=== PATIENT | male | born 1980 | race Caucasian/White ===

== ENCOUNTER 2021-06-25 08:41 | Emergency (ER) | payer MEDICAID ==
[~2021-06-25] VITALS: Ht 172.7 cm; Wt 63.0 kg
[2021-06-25 08:44] VITALS: BP 161/130
[2021-06-25] MEDS ORDERED: normal saline 1000ML IV soln IVB ONE (09:50)
[2021-06-25] MEDS ORDERED: LORazepam 2 mg/ml vial IV ONE (09:50)
[2021-06-25] MEDS ORDERED: Potassium Cl inj 20 MEQ, magnesium sulf injection 2 GM, folic acid inj. 1 MG, thiamine ... IV ONE ×6 (09:50)
[2021-06-25] MEDS ORDERED: multivitamins, therapeutics tablet PO ONE (09:50)
[2021-06-25] MEDS ORDERED: multivitamins, therapeutics tablet PO SCH (09:50)
--- NOTE | 2021-06-25 10:04 | NUR ---
IV attempt x1. Pt requesting to leave. Dr. Giron at bedside to explain need for treatment and risks of leaving. Patient agreeable to treatment. RN at bedside. IV attempt failed. Pt is agitated and states he wants a pill, food, and water. Refusing further IV or lab draw attempts. Dr. Giron updated. Pt uncooperative with treatment. AMA paperwork signed.
[2021-06-25] MEDS ORDERED: folic acid 1mg/0.2ml inj IV ONE (10:07)
[2021-06-25] MEDS ORDERED: potassium Cl 20mEq in D5-NS 1,000 ML IV ONE (10:10)
[2021-06-25] MEDS ORDERED: magnesium 2GM in 50ml NS 50 ML IV ONE (10:10)
[2021-06-25] MEDS ORDERED: thiamine 100mg/ml 2ml inj. IV ONE (10:10)
== END 2021-06-25 10:08 | disposition left against medical advice (07) ==
LOC: ER 08:41
DX: F10.139 Alcohol abuse with withdrawal, unspecified (principal); F12.90 Cannabis use, unspecified, uncomplicated; F15.90 Other stimulant use, unspecified, uncomplicated; F11.90 Opioid use, unspecified, uncomplicated; F17.200 Nicotine dependence, unspecified, uncomplicated; Z59.00 Homelessness unspecified; Z87.19 Personal history of other diseases of the digestive system; Z86.19 Personal history of other infectious and parasitic diseases; Z72.89 Other problems related to lifestyle; Z56.0 Unemployment, unspecified; Y90.9 Presence of alcohol in blood, level not specified
CPT/HCPCS: 99283

== ENCOUNTER 2021-07-02 23:41 | Emergency (ER) | payer MEDICAID ==
[~2021-07-02] VITALS: Ht 172.7 cm; Wt 69.8 kg
[2021-07-03 00:53] LABS: CLARITY,URINE CLEAR (Clear); COLOR,URINE YELLOW (Yellow); GLUCOSE, URINE NEGATIVE (Neg); KETONES,URINE NEGATIVE (Neg); LEUKOCYTE ESTERASE ,URINE NEGATIVE (Neg); NITRITES, URINE NEGATIVE (Neg); OCCULT BLOOD,URINE NEGATIVE (Neg); PROTEIN,URINE NEGATIVE (Neg); UROBILINOGEN,URINE 0.2 E.U/dL (0.2-1.0)
[2021-07-03 00:55] LABS: UA COLLECTION TYPE CLN CATCH MIDSTREAM
[2021-07-03 00:57] LABS: URINE AMPHETAMINE SCREEN POSITIVE (Neg); URINE BARBITUATE SCREEN NEGATIVE (Neg); URINE BENZODIAZEPINES SCREEN NEGATIVE (Neg); URINE CANNABINOID SCREEN NEGATIVE (Neg); URINE COCAINE SCREEN NEGATIVE (Neg); URINE METHADONE SCREEN NEGATIVE (Neg); URINE OPIATE SCREEN NEGATIVE (Neg); URINE PHENCYCLIDINE SCREEN NEGATIVE (Neg)
[2021-07-03] MEDS ORDERED: ondansetron/PF 4mg/2ml inj IV ONE (01:50)
[2021-07-03] MEDS ORDERED: normal saline 1000ml 1,000 ML IV ONE (01:50)
[2021-07-03] MEDS ORDERED: normal saline 1000ML IV soln IVB ONE (01:50)
[2021-07-03] MEDS ORDERED: chlordiazePOXIDE 25mg capsule PO ONE (01:50)
[2021-07-03 01:57] LABS: ALANINE AMINOTRANSFERASE 154 U/L (12-78); ALBUMIN 3.6 G/DL (3.4-5.0); ALBUMIN/GLOBULIN RATIO 0.8 (1.1-1.5); ALKALINE PHOSPHATASE 86 IU/L (46-116); ANION GAP 16 (8-16); ASPARTATE AMINO TRANSFERASE 132 U/L (10-37); BILIRUBIN,TOTAL 0.7 MG/DL (0.1-1.0); BLOOD UREA NITROGEN 6 MG/DL (7-18); BUN/CREATININE RATIO 7.6 (5.4-32.0); CALCIUM 8.4 MG/DL (8.5-10.1); CHLORIDE 105 MMOL/L (99-107); CREATININE 0.79 MG/DL (0.60-1.10); ETHANOL 0.227 GM/DL (0.0-0.010); GLUCOSE 111 MG/DL (70-104); MAGNESIUM 1.9 MG/DL (1.5-2.4); POTASSIUM 3.5 MMOL/L (3.5-5.1); SODIUM 144 MMOL/L (135-145); TOTAL CARBON DIOXIDE 22.9 MMOL/L (24-32); TOTAL PROTEIN 7.9 G/DL (6.4-8.2); eGFR > 90 ML/MIN
[2021-07-03 02:15] LABS: BASOPHILS # (AUTO) 0.1 X10'3 (0-0.2); BASOPHILS % (AUTO) 0.7 % (0-1); EOSINOPHILS # (AUTO) 0.2 X10'3 (0-0.9); EOSINOPHILS % (AUTO) 2.9 % (0-6); HEMATOCRIT 44.2 % (42.0-52.0); LYMPHOCYTES # (AUTO) 2.4 X10'3 (1.1-4.8); LYMPHOCYTES % (AUTO) 31.3 % (21-51); MEAN CORPUSCULAR HGB CONC 33.9 g/dL (33.0-36.5); MEAN CORPUSCULAR VOLUME 91.3 FL (78-98); MEAN PLATELET VOLUME 7.9 FL (7.4-10.4); MONOCYTES # (AUTO) 0.8 X10'3 (0-0.9); MONOCYTES % (AUTO) 10.1 % (2-12); NEUTROPHILS # (AUTO) 4.3 X10'3 (1.8-7.7); PLATELET COUNT 202 X10'3 (140-440); RED BLOOD COUNT 4.84 X10'6 (4.70-6.10); RED CELL DISTRIBUTION WIDTH 16.2 % (11.5-14.5); WHITE BLOOD COUNT 7.8 X10'3 (4.5-11.0)
[2021-07-03 03:30] VITALS: BP 141/89
== END 2021-07-03 03:32 | disposition home or self-care (01) ==
LOC: ER 23:42
DX: F10.129 Alcohol abuse with intoxication, unspecified (principal); F15.10 Other stimulant abuse, uncomplicated; Y90.9 Presence of alcohol in blood, level not specified; Z86.19 Personal history of other infectious and parasitic diseases; Z87.19 Personal history of other diseases of the digestive system; Z72.89 Other problems related to lifestyle; Z56.0 Unemployment, unspecified; Z59.00 Homelessness unspecified
CPT/HCPCS: 36415; 80053; 80305; 80320; 81003; 83735; 85025; 93005; 96361; 96374; 99284; J2405; J7030

== ENCOUNTER 2021-07-05 16:47 | Inpatient (IN) | payer MEDICAID ==
[~2021-07-05] VITALS: Ht 172.7 cm; Wt 63.6 kg
[2021-07-05 17:47] LABS: BASOPHILS # (AUTO) 0.1 X10'3 (0-0.2); EOSINOPHILS # (AUTO) 0.3 X10'3 (0-0.9); EOSINOPHILS % (AUTO) 4.3 % (0-6); HEMATOCRIT 45.3 % (42.0-52.0); HEMOGLOBIN 14.9 g/dl (14.0-17.9); LYMPHOCYTES # (AUTO) 2.6 X10'3 (1.1-4.8); LYMPHOCYTES % (AUTO) 43.6 % (21-51); MEAN CORPUSCULAR HEMOGLOBIN 30.6 PG (27.0-31.0); MEAN CORPUSCULAR VOLUME 92.9 FL (78-98); MEAN PLATELET VOLUME 7.2 FL (7.4-10.4); MONOCYTES # (AUTO) 0.5 X10'3 (0-0.9); MONOCYTES % (AUTO) 7.8 % (2-12); NEUTROPHILS # (AUTO) 2.6 X10'3 (1.8-7.7); NEUTROPHILS % (AUTO) 43.3 % (42-75); PLATELET COUNT 210 X10'3 (140-440); RED BLOOD COUNT 4.88 X10'6 (4.70-6.10); RED CELL DISTRIBUTION WIDTH 16.9 % (11.5-14.5)
[2021-07-05] MEDS ORDERED: cefTRIAXone 1g/NS 100ml IVPB 100 ML IV ONE (17:50)
[2021-07-05] MEDS ORDERED: normal saline 1000ML IV soln IVB ONE (17:50)
[2021-07-05] MEDS ORDERED: thiamine 100mg/ml 2ml inj. IV ONE (17:50)
[2021-07-05] MEDS ORDERED: LORazepam 2 mg/ml vial IV ONE (17:50)
[2021-07-05] MEDS ORDERED: folic acid 1mg tablet PO ONE (17:50)
[2021-07-05 18:00] LABS: ALANINE AMINOTRANSFERASE 144 U/L (12-78); ALBUMIN 3.3 G/DL (3.4-5.0); ALBUMIN/GLOBULIN RATIO 0.8 (1.1-1.5); ALKALINE PHOSPHATASE 90 IU/L (46-116); ANION GAP 12 (8-16); ASPARTATE AMINO TRANSFERASE 126 U/L (10-37); BILIRUBIN,TOTAL 0.4 MG/DL (0.1-1.0); BLOOD UREA NITROGEN 3 MG/DL (7-18); BUN/CREATININE RATIO 4.1 (5.4-32.0); CALCIUM 8.2 MG/DL (8.5-10.1); CHLORIDE 109 MMOL/L (99-107); CREATININE 0.74 MG/DL (0.60-1.10); GLUCOSE 94 MG/DL (70-104); POTASSIUM 3.7 MMOL/L (3.5-5.1); SODIUM 146 MMOL/L (135-145); TOTAL CARBON DIOXIDE 24.6 MMOL/L (24-32); TOTAL PROTEIN 7.5 G/DL (6.4-8.2); eGFR > 90 ML/MIN
[2021-07-05 18:05] LABS: MAGNESIUM 1.7 MG/DL (1.5-2.4)
[2021-07-05 18:07] LABS: ETHANOL 0.331 GM/DL (0.0-0.010)
--- NOTE | 2021-07-05 18:55 | NUR ---
Pt c/o right arm pain, swelling and stiffness for the past several days; see triage note.
[2021-07-05] MEDS ORDERED: ketorolac tromethamine 15mg/ml inj. IV ONE (19:30)
[2021-07-05] MEDS ORDERED: magnesium Cl slow-release 64mg tablet PO PRN (23:05)
[2021-07-05] MEDS ORDERED: magnesium 2GM in 50ml NS 50 ML IV PRN (23:05)
[2021-07-05] MEDS ORDERED: potassium CL 10mEq/100ml bag 100 ML IV PRN (23:05)
[2021-07-05] MEDS ORDERED: acetaminophen 325mg tablet PO PRN (23:05)
[2021-07-05] MEDS ORDERED: magnesium 4gm in 100ml NS 100 ML IV PRN (23:05)
[2021-07-05] MEDS ORDERED: mag hydrox/Alum hydrox/simeth 30ml oral suspension PO PRN (23:05)
[2021-07-05] MEDS ORDERED: LORazepam 2 mg/ml vial IV PRN (23:05)
[2021-07-05] MEDS ORDERED: ondansetron/PF 4mg/2ml inj IV PRN (23:05)
[2021-07-05] MEDS ORDERED: potassium Cl 20 mEq SR tablet PO PRN ×2 (23:05)
[2021-07-05] MEDS ORDERED: magnesium hydroxide 30ml (MOM) UD suspension PO PRN (23:05)
[2021-07-05] MEDS: normal saline 1000ml 1,000 ML IV SCH (23:23)
[2021-07-05 23:43] LABS: MAGNESIUM 1.6 MG/DL (1.5-2.4); POTASSIUM 3.4 MMOL/L (3.5-5.1)
[2021-07-05] MEDS: LORazepam 2 mg/ml vial IV PRN (23:51)
[2021-07-06 01:18] LABS: BASOPHILS # (AUTO) 0.1 X10'3 (0-0.2); EOSINOPHILS # (AUTO) 0.3 X10'3 (0-0.9); EOSINOPHILS % (AUTO) 4.6 % (0-6); HEMATOCRIT 38.8 % (42.0-52.0); LYMPHOCYTES # (AUTO) 2.1 X10'3 (1.1-4.8); LYMPHOCYTES % (AUTO) 34.7 % (21-51); MEAN CORPUSCULAR HEMOGLOBIN 31.2 PG (27.0-31.0); MEAN CORPUSCULAR HGB CONC 33.6 g/dL (33.0-36.5); MEAN CORPUSCULAR VOLUME 92.9 FL (78-98); MEAN PLATELET VOLUME 7.1 FL (7.4-10.4); MONOCYTES # (AUTO) 0.5 X10'3 (0-0.9); MONOCYTES % (AUTO) 8.3 % (2-12); NEUTROPHILS # (AUTO) 3.1 X10'3 (1.8-7.7); NEUTROPHILS % (AUTO) 51.4 % (42-75); PLATELET COUNT 172 X10'3 (140-440); RED BLOOD COUNT 4.17 X10'6 (4.70-6.10); RED CELL DISTRIBUTION WIDTH 16.6 % (11.5-14.5); WHITE BLOOD COUNT 6.1 X10'3 (4.5-11.0)
--- NOTE | 2021-07-06 01:27 | NUR ---
Attempted to provide report to RN, who states she'll return call "in a miniute."
[2021-07-06 01:32] LABS: ALANINE AMINOTRANSFERASE 116 U/L (12-78); ALBUMIN 2.6 G/DL (3.4-5.0); ALBUMIN/GLOBULIN RATIO 0.7 (1.1-1.5); ALKALINE PHOSPHATASE 78 IU/L (46-116); ANION GAP 9 (8-16); ASPARTATE AMINO TRANSFERASE 123 U/L (10-37); BILIRUBIN,TOTAL 0.3 MG/DL (0.1-1.0); BLOOD UREA NITROGEN 3 MG/DL (7-18); BUN/CREATININE RATIO 4.3 (5.4-32.0); CALCIUM 7.8 MG/DL (8.5-10.1); CHLORIDE 108 MMOL/L (99-107); GLUCOSE 96 MG/DL (70-104); MAGNESIUM 1.6 MG/DL (1.5-2.4); POTASSIUM 3.6 MMOL/L (3.5-5.1); SODIUM 144 MMOL/L (135-145); TOTAL CARBON DIOXIDE 26.6 MMOL/L (24-32); TOTAL PROTEIN 6.1 G/DL (6.4-8.2); eGFR > 90 ML/MIN
--- NOTE | 2021-07-06 01:58 | NUR ---
Report called to MATILDA Ding for pt going to [facility]
[2021-07-06 02:42] VITALS: BP 130/70
[2021-07-06] MEDS: HYDROcodone/acetaminophen 5mg/325mg tablet PO PRN ×5 (02:59→21:39)
[2021-07-06] MEDS: LORazepam 2 mg/ml vial IV PRN ×7 (02:59→22:40)
[2021-07-06] MEDS: CLINDAMYCIN 300mg/NS 50ml IVPB 50 ML IV SCH ×3 (03:08→13:19)
[2021-07-06 07:00] VITALS: BP 132/76
--- NOTE | 2021-07-06 07:03 | NUR ---
Patient in room [facility]. I have received report from Gissel GREY and had the opportunity to ask questions and assume patient care.
--- NOTE | 2021-07-06 07:23 | NUR ---
PAGER ID: [phone] MESSAGE: [phone] BLOCK, M: PATIENT PASSED AT [id number]. NOC HOSPITALIST ASKED THAT I NOTIFY YOU. THANKS! ELLE [phone]
[2021-07-06] MEDS: heparin, porcine 5000 units/ml vial SQ SCH ×2 (07:24→21:38)
[2021-07-06] MEDS: docusate sod 100mg capsule PO SCH ×2 (07:28→21:37)
[2021-07-06] MEDS: K and/or MAG REPLACEMENT MC SCH ×2 (08:00→20:00)
[2021-07-06] MEDS ORDERED: NO HOME MEDS (09:49)
[2021-07-06] MEDS: normal saline 1000ml 1,000 ML IV SCH ×2 (10:06→19:47)
[2021-07-06 10:20] LABS: CLARITY,URINE CLEAR (Clear); GLUCOSE, URINE NEGATIVE (Neg); KETONES,URINE NEGATIVE (Neg); LEUKOCYTE ESTERASE ,URINE NEGATIVE (Neg); NITRITES, URINE NEGATIVE (Neg); OCCULT BLOOD,URINE NEGATIVE (Neg); PH,URINE 7.5 (4.8-8.0); PROTEIN,URINE NEGATIVE (Neg); UROBILINOGEN,URINE 0.2 E.U/dL (0.2-1.0)
[2021-07-06 10:21] LABS: URINE AMPHETAMINE SCREEN NEGATIVE (Neg); URINE BARBITUATE SCREEN NEGATIVE (Neg); URINE BENZODIAZEPINES SCREEN POSITIVE (Neg); URINE CANNABINOID SCREEN NEGATIVE (Neg); URINE COCAINE SCREEN NEGATIVE (Neg); URINE METHADONE SCREEN NEGATIVE (Neg); URINE OPIATE SCREEN POSITIVE (Neg); URINE PHENCYCLIDINE SCREEN NEGATIVE (Neg)
[2021-07-06 10:23] LABS: COLOR,URINE STRAW (Yellow); UA COLLECTION TYPE CLN CATCH MIDSTREAM
[2021-07-06 11:00] VITALS: BP 151/91
--- NOTE | 2021-07-06 11:45 | NUR ---
Met with patient in regards to alcohol use and to see if patient is interested in treatment options. Patient would like to go to an inpatient rehab. I gave patient [facility] number to start process. I also talked to patient about medication to help with alcohol cravings. I gave patient my card to call me if he has any questions.
--- NOTE | 2021-07-06 18:13 | NUR ---
Problems reprioritized. Patient report given, questions answered & plan of care reviewed with MATILDA Spencer.
[2021-07-06 20:00] VITALS: BP 140/79
[2021-07-06] MEDS ORDERED: clindamycin 300mg/D5W 50mL 50 ML IV ONE (21:18)
[2021-07-07] VITALS: BP 165/113
[2021-07-07] MEDS: LORazepam 2 mg/ml vial IV PRN ×7 (00:55→20:16)
[2021-07-07 00:57] VITALS: BP 170/110
--- NOTE | 2021-07-07 01:22 | NUR ---
DR WILCOX NOTIFIED OF BP 170/110 P 88 . NO ADDITIONAL ORDERS DR WILCOX STATED TO CONTINUE ATIVAN NEEDED
[2021-07-07 03:36] VITALS: BP 139/85
[2021-07-07] MEDS: HYDROcodone/acetaminophen 5mg/325mg tablet PO PRN (03:42)
[2021-07-07] MEDS: clindamycin 300mg/D5W 50mL 50 ML IV SCH ×4 (03:44→20:10)
[2021-07-07] MEDS: normal saline 1000ml 1,000 ML IV SCH ×2 (06:01→16:21)
--- NOTE | 2021-07-07 06:26 | NUR ---
Patient in room [facility]. I have received report from HUGO GREY and had the opportunity to ask questions and assume patient care.
[2021-07-07 06:41] LABS: BASOPHILS # (AUTO) 0.1 X10'3 (0-0.2); BASOPHILS % (AUTO) 1.2 % (0-1); EOSINOPHILS # (AUTO) 0.3 X10'3 (0-0.9); EOSINOPHILS % (AUTO) 5.9 % (0-6); HEMATOCRIT 41.7 % (42.0-52.0); LYMPHOCYTES # (AUTO) 1.2 X10'3 (1.1-4.8); LYMPHOCYTES % (AUTO) 25.3 % (21-51); MEAN CORPUSCULAR HGB CONC 33.7 g/dL (33.0-36.5); MEAN CORPUSCULAR VOLUME 92.1 FL (78-98); MEAN PLATELET VOLUME 8.3 FL (7.4-10.4); MONOCYTES # (AUTO) 0.5 X10'3 (0-0.9); MONOCYTES % (AUTO) 11.9 % (2-12); NEUTROPHILS # (AUTO) 2.5 X10'3 (1.8-7.7); NEUTROPHILS % (AUTO) 55.7 % (42-75); PLATELET COUNT 160 X10'3 (140-440); RED BLOOD COUNT 4.52 X10'6 (4.70-6.10); RED CELL DISTRIBUTION WIDTH 16.3 % (11.5-14.5); WHITE BLOOD COUNT 4.5 X10'3 (4.5-11.0)
[2021-07-07 07:01] LABS: ALANINE AMINOTRANSFERASE 115 U/L (12-78); ALBUMIN 2.9 G/DL (3.4-5.0); ALBUMIN/GLOBULIN RATIO 0.8 (1.1-1.5); ALKALINE PHOSPHATASE 88 IU/L (46-116); ANION GAP 11 (8-16); ASPARTATE AMINO TRANSFERASE 95 U/L (10-37); BILIRUBIN,TOTAL 0.8 MG/DL (0.1-1.0); BLOOD UREA NITROGEN 3 MG/DL (7-18); BUN/CREATININE RATIO 4.5 (5.4-32.0); CALCIUM 8.3 MG/DL (8.5-10.1); CHLORIDE 104 MMOL/L (99-107); CREATININE 0.66 MG/DL (0.60-1.10); GLUCOSE 92 MG/DL (70-104); MAGNESIUM 1.5 MG/DL (1.5-2.4); POTASSIUM 3.7 MMOL/L (3.5-5.1); SODIUM 139 MMOL/L (135-145); TOTAL CARBON DIOXIDE 24.4 MMOL/L (24-32); TOTAL PROTEIN 6.7 G/DL (6.4-8.2); eGFR > 90 ML/MIN
--- NOTE | 2021-07-07 07:06 | NUR ---
NO SEIZURE ACTIVITY NOTED OVERNIGHT
[2021-07-07] MEDS: K and/or MAG REPLACEMENT MC SCH ×2 (08:00→20:00)
[2021-07-07 08:15] VITALS: BP 148/83
[2021-07-07] MEDS ORDERED: haloperidol 5mg tablet PO PRN (08:30)
[2021-07-07] MEDS ORDERED: haloperidol lactate 5mg/ml inj IM PRN (08:30)
[2021-07-07] MEDS: heparin, porcine 5000 units/ml vial SQ SCH ×2 (08:52→20:11)
[2021-07-07] MEDS: docusate sod 100mg capsule PO SCH ×2 (08:53→20:10)
[2021-07-07] MEDS: thiamine 100mg tablet PO SCH (09:03)
[2021-07-07] MEDS: folic acid 1mg tablet PO SCH (09:03)
[2021-07-07 09:58] LABS: PHOSPHORUS 3.4 MG/DL (2.3-4.5)
[2021-07-07 13:16] VITALS: BP 136/83
[2021-07-07 18:00] VITALS: BP 138/91
--- NOTE | 2021-07-07 18:44 | NUR ---
Noticed patient was not on ETOH protocol as patient drinks a litre of vodka daily,DR Sandoval contacted and order given.patient shaking and anxious. Asking for ativan. Administered x4 with good effect. psychiatric social worker alerted with regards options for patient. C/O itchy arms from eczema. DR Sandoval paged with regards cream for arms, awaiting call back. patient sleeping alot of day. Report given to Lesa GREY
--- NOTE | 2021-07-07 18:50 | NUR ---
Patient in room [facility]. I have received report from AKVON GREY and had the opportunity to ask questions and assume patient care.
[2021-07-08] VITALS: BP 133/90
[2021-07-08] MEDS: normal saline 1000ml 1,000 ML IV SCH ×3 (02:30→19:51)
[2021-07-08] MEDS: clindamycin 300mg/D5W 50mL 50 ML IV SCH ×4 (02:30→19:49)
--- NOTE | 2021-07-08 06:24 | NUR ---
Problems reprioritized. Patient report given, questions answered & plan of care reviewed with MERA GREY.
[2021-07-08 06:35] LABS: BASOPHILS % (AUTO) 0.8 % (0-1); EOSINOPHILS # (AUTO) 0.4 X10'3 (0-0.9); EOSINOPHILS % (AUTO) 6.2 % (0-6); HEMATOCRIT 46.6 % (42.0-52.0); HEMOGLOBIN 15.5 g/dl (14.0-17.9); LYMPHOCYTES # (AUTO) 2.2 X10'3 (1.1-4.8); LYMPHOCYTES % (AUTO) 36.6 % (21-51); MEAN CORPUSCULAR HEMOGLOBIN 30.8 PG (27.0-31.0); MEAN CORPUSCULAR HGB CONC 33.2 g/dL (33.0-36.5); MEAN CORPUSCULAR VOLUME 92.7 FL (78-98); MEAN PLATELET VOLUME 8.6 FL (7.4-10.4); MONOCYTES # (AUTO) 0.7 X10'3 (0-0.9); MONOCYTES % (AUTO) 12.1 % (2-12); NEUTROPHILS # (AUTO) 2.7 X10'3 (1.8-7.7); NEUTROPHILS % (AUTO) 44.3 % (42-75); PLATELET COUNT 180 X10'3 (140-440); RED BLOOD COUNT 5.02 X10'6 (4.70-6.10); RED CELL DISTRIBUTION WIDTH 16.8 % (11.5-14.5)
[2021-07-08 06:47] LABS: ALANINE AMINOTRANSFERASE 125 U/L (12-78); ALBUMIN 2.9 G/DL (3.4-5.0); ALBUMIN/GLOBULIN RATIO 0.7 (1.1-1.5); ALKALINE PHOSPHATASE 89 IU/L (46-116); ANION GAP 6 (8-16); ASPARTATE AMINO TRANSFERASE 113 U/L (10-37); BILIRUBIN,TOTAL 0.7 MG/DL (0.1-1.0); BLOOD UREA NITROGEN 6 MG/DL (7-18); BUN/CREATININE RATIO 10.2 (5.4-32.0); CALCIUM 8.8 MG/DL (8.5-10.1); CHLORIDE 107 MMOL/L (99-107); CREATININE 0.59 MG/DL (0.60-1.10); GLUCOSE 100 MG/DL (70-104); PHOSPHORUS 3.6 MG/DL (2.3-4.5); POTASSIUM 4.3 MMOL/L (3.5-5.1); SODIUM 137 MMOL/L (135-145); TOTAL CARBON DIOXIDE 24.1 MMOL/L (24-32); TOTAL PROTEIN 7.1 G/DL (6.4-8.2); eGFR > 90 ML/MIN
[2021-07-08] MEDS: thiamine 100mg tablet PO SCH (07:11)
[2021-07-08] MEDS: folic acid 1mg tablet PO SCH (07:12)
[2021-07-08] MEDS: docusate sod 100mg capsule PO SCH ×2 (07:12→19:49)
[2021-07-08] MEDS: heparin, porcine 5000 units/ml vial SQ SCH ×2 (07:12→19:50)
[2021-07-08] MEDS: multivitamins, therapeutics tablet PO SCH (07:12)
[2021-07-08] MEDS: LORazepam 2 mg/ml vial IV PRN ×3 (07:12→18:50)
[2021-07-08] MEDS: HYDROcodone/acetaminophen 5mg/325mg tablet PO PRN ×2 (07:26→19:52)
[2021-07-08 08:00] VITALS: BP 136/102
[2021-07-08] MEDS: K and/or MAG REPLACEMENT MC SCH ×2 (08:00→19:50)
[2021-07-08 12:00] VITALS: BP 138/95
--- NOTE | 2021-07-08 18:22 | NUR ---
Patient in room [facility]. I have received report from MERA GREY and had the opportunity to ask questions and assume patient care.
[2021-07-08 20:00] VITALS: BP 130/101
[2021-07-09] VITALS: BP 146/96
[2021-07-09] MEDS: HYDROcodone/acetaminophen 5mg/325mg tablet PO PRN ×4 (00:09→19:29)
[2021-07-09] MEDS: LORazepam 2 mg/ml vial IV PRN (01:13)
[2021-07-09] MEDS: clindamycin 300mg/D5W 50mL 50 ML IV SCH ×3 (01:16→14:08)
[2021-07-09 06:06] LABS: BASOPHILS % (AUTO) 0.7 % (0-1); EOSINOPHILS # (AUTO) 0.2 X10'3 (0-0.9); EOSINOPHILS % (AUTO) 4.1 % (0-6); HEMATOCRIT 45.5 % (42.0-52.0); HEMOGLOBIN 15.3 g/dl (14.0-17.9); LYMPHOCYTES % (AUTO) 33.7 % (21-51); MEAN CORPUSCULAR HEMOGLOBIN 31.3 PG (27.0-31.0); MEAN CORPUSCULAR HGB CONC 33.7 g/dL (33.0-36.5); MEAN CORPUSCULAR VOLUME 92.7 FL (78-98); MEAN PLATELET VOLUME 8.7 FL (7.4-10.4); MONOCYTES # (AUTO) 0.7 X10'3 (0-0.9); MONOCYTES % (AUTO) 12.1 % (2-12); NEUTROPHILS % (AUTO) 49.4 % (42-75); PLATELET COUNT 174 X10'3 (140-440); RED BLOOD COUNT 4.91 X10'6 (4.70-6.10); RED CELL DISTRIBUTION WIDTH 16.3 % (11.5-14.5)
[2021-07-09 06:20] LABS: ALANINE AMINOTRANSFERASE 129 U/L (12-78); ALBUMIN/GLOBULIN RATIO 0.8 (1.1-1.5); ALKALINE PHOSPHATASE 82 IU/L (46-116); ANION GAP 7 (8-16); ASPARTATE AMINO TRANSFERASE 104 U/L (10-37); BILIRUBIN,TOTAL 0.6 MG/DL (0.1-1.0); BLOOD UREA NITROGEN 6 MG/DL (7-18); BUN/CREATININE RATIO 10.3 (5.4-32.0); CALCIUM 8.4 MG/DL (8.5-10.1); CHLORIDE 106 MMOL/L (99-107); CREATININE 0.58 MG/DL (0.60-1.10); GLUCOSE 99 MG/DL (70-104); PHOSPHORUS 3.5 MG/DL (2.3-4.5); POTASSIUM 3.8 MMOL/L (3.5-5.1); SODIUM 137 MMOL/L (135-145); TOTAL CARBON DIOXIDE 23.9 MMOL/L (24-32); eGFR > 90 ML/MIN
--- NOTE | 2021-07-09 06:36 | NUR ---
Problems reprioritized. Patient report given, questions answered & plan of care reviewed with MERA GREY.
[2021-07-09 07:00] VITALS: BP 138/94
[2021-07-09] MEDS: normal saline 1000ml 1,000 ML IV SCH ×2 (07:05→16:47)
[2021-07-09] MEDS: thiamine 100mg tablet PO SCH (07:54)
[2021-07-09] MEDS: LORazepam 1 MG tablet PO PRN ×5 (07:54→22:45)
[2021-07-09] MEDS: multivitamins, therapeutics tablet PO SCH (07:54)
[2021-07-09] MEDS: docusate sod 100mg capsule PO SCH ×2 (07:54→19:29)
[2021-07-09] MEDS: heparin, porcine 5000 units/ml vial SQ SCH ×2 (07:55→19:30)
[2021-07-09] MEDS: K and/or MAG REPLACEMENT MC SCH ×2 (08:00→20:00)
[2021-07-09] MEDS: folic acid 1mg tablet PO SCH (08:02)
[2021-07-09] MEDS ORDERED: LORazepam 2 mg/ml vial IV PRN (08:30)
[2021-07-09 11:00] VITALS: BP 137/100
--- NOTE | 2021-07-09 18:44 | NUR ---
Patient in room [facility]. I have received report from MATILDA TESFAYE and had the opportunity to ask questions and assume patient care. Addendum: 07/09/21 at 1844 by Nanda Carbajal RN Amended: Links added.
[2021-07-09] MEDS: clindamycin 150mg capsule PO SCH (19:29)
[2021-07-09 20:00] VITALS: BP 150/105
[2021-07-10] MEDS: normal saline 1000ml 1,000 ML IV SCH (01:36)
[2021-07-10] MEDS: LORazepam 1 MG tablet PO PRN ×3 (01:44→11:13)
[2021-07-10] MEDS: clindamycin 150mg capsule PO SCH ×2 (01:44→08:05)
[2021-07-10] MEDS: HYDROcodone/acetaminophen 5mg/325mg tablet PO PRN ×3 (01:45→12:14)
[2021-07-10 05:24] LABS: BASOPHILS % (AUTO) 0.7 % (0-1); EOSINOPHILS # (AUTO) 0.1 X10'3 (0-0.9); EOSINOPHILS % (AUTO) 2.7 % (0-6); HEMATOCRIT 43.9 % (42.0-52.0); HEMOGLOBIN 14.7 g/dl (14.0-17.9); LYMPHOCYTES # (AUTO) 1.8 X10'3 (1.1-4.8); LYMPHOCYTES % (AUTO) 34.6 % (21-51); MEAN CORPUSCULAR HGB CONC 33.4 g/dL (33.0-36.5); MEAN CORPUSCULAR VOLUME 92.7 FL (78-98); MEAN PLATELET VOLUME 8.1 FL (7.4-10.4); MONOCYTES # (AUTO) 0.7 X10'3 (0-0.9); MONOCYTES % (AUTO) 13.3 % (2-12); NEUTROPHILS # (AUTO) 2.6 X10'3 (1.8-7.7); NEUTROPHILS % (AUTO) 48.7 % (42-75); PLATELET COUNT 164 X10'3 (140-440); RED BLOOD COUNT 4.73 X10'6 (4.70-6.10); RED CELL DISTRIBUTION WIDTH 16.6 % (11.5-14.5); WHITE BLOOD COUNT 5.3 X10'3 (4.5-11.0)
[2021-07-10 05:46] LABS: ALANINE AMINOTRANSFERASE 124 U/L (12-78); ALBUMIN/GLOBULIN RATIO 0.8 (1.1-1.5); ALKALINE PHOSPHATASE 72 IU/L (46-116); ANION GAP 11 (8-16); ASPARTATE AMINO TRANSFERASE 85 U/L (10-37); BILIRUBIN,TOTAL 0.5 MG/DL (0.1-1.0); BLOOD UREA NITROGEN 5 MG/DL (7-18); BUN/CREATININE RATIO 7.9 (5.4-32.0); CALCIUM 8.6 MG/DL (8.5-10.1); CHLORIDE 105 MMOL/L (99-107); CREATININE 0.63 MG/DL (0.60-1.10); GLUCOSE 104 MG/DL (70-104); PHOSPHORUS 3.4 MG/DL (2.3-4.5); SODIUM 139 MMOL/L (135-145); TOTAL CARBON DIOXIDE 23.3 MMOL/L (24-32); TOTAL PROTEIN 6.9 G/DL (6.4-8.2); eGFR > 90 ML/MIN
[2021-07-10 07:00] VITALS: BP 117/74
--- NOTE | 2021-07-10 07:04 | NUR ---
Problems reprioritized. Patient report given, questions answered & plan of care reviewed with MATILDA JACOBSON. Addendum: 07/10/21 at 0704 by Nanda Carbajal RN Amended: Links added.
--- NOTE | 2021-07-10 07:11 | NUR ---
Patient in room [facility]. I have received report from GILLIAN GREY and had the opportunity to ask questions and assume patient care.
[2021-07-10] MEDS: thiamine 100mg tablet PO SCH (08:00)
[2021-07-10] MEDS ORDERED: thiamine 100mg tablet PO SCH (08:00)
[2021-07-10] MEDS ORDERED: folic acid 1mg tablet PO SCH (08:00)
[2021-07-10] MEDS: folic acid 1mg tablet PO SCH (08:00)
[2021-07-10] MEDS: multivitamins, therapeutics tablet PO SCH (08:06)
[2021-07-10] MEDS: docusate sod 100mg capsule PO SCH (08:06)
[2021-07-10] MEDS: heparin, porcine 5000 units/ml vial SQ SCH (08:07)
--- NOTE | 2021-07-10 10:15 | NUR ---
Initial: Pt admitted w/ alcohol intoxication and cellulitis to [facility] per EMR, pt reportedly drinks 1 liter of vodka daily. Currently on Regular diet w/ mostly 100% intake of meals meeting needs at this time. [facility] 07/08 receiving routine colace. No nutrition intervention implemented at this time, will continue to monitor. Recs: 1. Continue Regular diet as tolerated 2. Bowel care per rx 3. Routine Thiamine, Folate, MVI for EtOH 4. Scaled wts Addendum: 07/10/21 at [address] Amended: Links added.
[2021-07-10] MEDS ORDERED: CEPH-585 PO (11:03)
--- NOTE | 2021-07-10 16:08 | NUR ---
patient medicated for pain and anxiety x2 with effect. seen by Dr Barakat is for DC to rehab facility in [place]. All DC instructions given to patient. Patient DC to [place] with [facility] personals in stable condition. prescription given to patient to hand into [facility] pharmacy in [place].
[2021-07-11] MEDS ORDERED: LORazepam 2 mg/ml vial IV PRN (08:30)
[2021-07-11] MEDS ORDERED: LORazepam 1 MG tablet PO PRN (08:30)
== END 2021-07-10 13:56 | disposition home or self-care (01) | DRG 383 ==
LOC: ER 16:48 → ED HOLD 23:05 → UNDOADMIN 23:05 → EDBEDREQ 23:32 → ED HOLD 07-06 02:07 → SUR 3N 07-06 02:07
PROVIDERS: ADMIT Internal Medicine; ATTEND Family Medicine
DX: L03.113 Cellulitis of right upper limb (principal); F10.231 Alcohol dependence with withdrawal delirium; R56.9 Unspecified convulsions; B19.20 Unspecified viral hepatitis C without hepatic coma; F10.229 Alcohol dependence with intoxication, unspecified; R21 Rash and other nonspecific skin eruption; F12.90 Cannabis use, unspecified, uncomplicated; Z56.0 Unemployment, unspecified; Z59.00 Homelessness unspecified
CPT/HCPCS: 36415; 80053; 80305; 80320; 81003; 82948; 83735; 84100; 84132; 85025; 85610; 87081; 97161; 97530; 99285; G0378; J0696; J1644; J1885; J2060; J2405; J3411; J3490; J7030